=== PATIENT | male | born 1965 | race Caucasian/White ===

== ENCOUNTER → 2016-08-04 | Outpatient (CLI) | payer OTHER ==
[~2016-08-04] MED LIST: AMARYL4 MG PO; ASPI-COR81 M1 PO; GLUCOPHAGE1000 MG PO; LANTUS100 U/ML SC; LIPITOR40 MG PO; LOFIBRA134 MG PO; PERCOCET 325 MG1 TA2 PO; PRILOSEC20 MG PO; VICTOZA 3-PAK6 MG/ML SC; VOLTAREN11 TP; ZESTRIL5 MG PO; ZOFRAN4 MG PO
--- NOTE | ~2016-08-04 | O ---
[place], [place] OPERATIVE NOTE NAME: [facility] #: [id number] UNIT #: [id number] ROOM: DOCTOR: KIRT MUNROE DO BIRTHDATE: [birth year] DOS: 08/08/2016 PREOPERATIVE DIAGNOSIS: Left knee medial meniscus tear. POSTOPERATIVE DIAGNOSIS: Left knee medial meniscus tear. OPERATIVE PROCEDURE: Arthroscopy of the left knee with debridement of the medial meniscus tear. SURGEON: Kirt Munroe DO MAPPER: Issac. ANESTHESIA: [place], BINGO CALLER INDICATIONS: The patient is a 51-year-old male with a history of left knee pain and swelling for several months. No specific injury to the left knee. Physical exam and MRI findings indicated a medial meniscus tear. The risks and benefits of the procedure were explained to the patient preoperatively. Preoperative labs and x-rays were obtained. DESCRIPTION OF PROCEDURE: The left knee was marked in the holding room. The patient was brought to the operative suite. A timeout was performed. General anesthetic with LMA intubation was performed. The patient was placed supine on the operative table. The left knee was prepped and draped in the usual orthopedic manner and placed in a leg murillo. The area about the medial and lateral parapatellar portal was injected with Marcaine 0.5% with epinephrine. Lateral portal was created using a #11 blade followed by a blunt trocar and cannula. The trocar was removed, the cannula remained. The inflow and the outflow were established through the cannula. The arthroscopy camera was placed through the cannula as well. The medial portal was created after the area had been marked with a spinal needle followed by #11 blade and a blunt trocar. The knee was evaluated in systematic fashion. The medial portal was noted to have a complex posterior medial meniscus tear. This was debrided using handheld instrumentation, a full radius resector, and an Arthrocare wand. The articular surface was essentially intact to probing and visualization. The notch was identified and evaluated. The anterior cruciate ligament was noted to be intact to probing and an anterior drawer test. Lateral compartment was identified and evaluated. The articular surface was essentially intact as was the meniscus. The patellofemoral joint was identified and evaluated. This was noted to be intact to probing and direct visualization. The instrumentation was switched using the arthroscopy camera medially and [place], [place] OPERATIVE NOTE NAME: ANGI LOWERY SR UNIT #: [id number] ROOM: DOCTOR: KIRT MUNROE DO BIRTHDATE: [birth year] instrumentation laterally. All compartments were again identified and evaluated. Further debridement was performed along the posterior medial meniscus. When no further repairable or debridable pathology was present, the knee was copiously irrigated with remainder of lactated Ringer with epinephrine. The instrumentation was removed. The portals were expressed of any excess fluid. The portals were closed with 4-0 Prolene. Xeroform, 4 x 4s, cast padding, and ABDs were applied followed by an Dylan bandage. The anesthetic was reversed. The patient was extubated and taken to the recovery room in satisfactory condition. Sponge and needle count correct. ESTIMATED BLOOD LOSS: 5 mL. SPECIMENS: None. DRAINS: None. COMPLICATIONS: None. FINDINGS: Complex medial meniscus tear. KIRT MUNROE DO CM:OPRECORD:OPERATIVE NOTE [id number] KIRT MUNROE DO 08/17/16 0617 MARAH BLACKMAN.TM
[2016-08-04 14:36] LABS: BILIRUBIN NEGATIVE (NEGATIVE); BLOOD TRACE-LYSED (NEGATIVE); CLARITY SL CLOUDY (CLEAR); COLOR YELLOW (YELLOW); GLUCOSE NEGATIVE (NEGATIVE); KETONE NEGATIVE (NEGATIVE); LEUKO ESTERASE NEGATIVE (NEGATIVE); NITRITE NEGATIVE (NEGATIVE); PROTEIN NEGATIVE (NEGATIVE); UROBILINOGEN 0.2 E.U./dl (0.2-1.0)
[2016-08-04 15:03] LABS: BUN 8 mg/dl (7-24); CARBON DIOXIDE 27 mmol/L (21-32); CHLORIDE 103 mmol/L (98-107); EST GLOM FILT AFRICAN AMERICAN > 60 ml/min; GLUCOSE 86 mg/dL (65-99); POTASSIUM 4.1 mmol/L (3.5-5.1); SODIUM 141 mmol/L (136-145)
[2016-08-04 15:07] LABS: RBC 0-2 rbc/hpf (0-2); WBC 0-2 wbc/hpf (0-5)
[2016-08-04 15:22] LABS: HEMOGLOBIN A1c 8.2 % (4.8-5.6)
[2016-08-04 15:30] LABS: BASO # 0.1 10*3/uL (0.0-0.1); BASO % 1.2 % (0.0-1.0); EOS # 0.3 10*3/uL (0.0-0.4); EOS % 2.9 % (1.0-4.0); HEMATOCRIT 40.8 % (42.0-52.0); HEMOGLOBIN 12.3 g/dl (14.0-18.0); LYMPH # 1.6 10*3/uL (1.3-4.4); LYMPH % 18.8 % (27.0-41.0); MEAN CELL VOLUME 86.4 fl (80.0-94.0); MEAN CORPUSCULAR HGB 26.1 pg (27.0-31.0); MEAN CORPUSCULAR HGB CONC 30.1 g/dl (33.0-37.0); MEAN PLATELET VOLUME 9.5 fl (9.6-12.3); MONO # 0.6 10*3/uL (0.1-1.0); MONO % 7.2 % (3.0-9.0); NEUT # 5.9 10*3/uL (2.3-7.9); NEUT % 69.4 % (47.0-73.0); PLATELET COUNT AUTOMATED 285 10*3/uL (130-400); RED BLOOD COUNT 4.72 10*6/uL (4.50-5.90); WHITE BLOOD COUNT 8.6 10*3/uL (4.8-10.8)
== END | disposition home or self-care (01) ==
LOC: LAB 12:38
PROVIDERS: Orthopaedic Surgery
DX: Z01.818 Encounter for other preprocedural examination (principal); S83.242A Other tear of medial meniscus, current injury, left knee, initial encounter; E11.9 Type 2 diabetes mellitus without complications; I10 Essential (primary) hypertension

== ENCOUNTER → 2019-06-28 | Outpatient (CLI) | payer OTHER | END | disposition home or self-care (01) | LOC: RESCLI 00:42 | DX: Z11.59 Encounter for screening for other viral diseases (principal); E11.9 Type 2 diabetes mellitus without complications; I10 Essential (primary) hypertension; E78.5 Hyperlipidemia, unspecified; Q60.0 Renal agenesis, unilateral; K21.9 Gastro-esophageal reflux disease without esophagitis; M21.70 Unequal limb length (acquired), unspecified site; E66.9 Obesity, unspecified; Z79.899 Other long term (current) drug therapy ==

== ENCOUNTER → 2019-12-18 | Outpatient (CLI) | payer OTHER | END | disposition home or self-care (01) | LOC: US 10-26 10:30 | DX: Q60.0 Renal agenesis, unilateral (principal) ==

== ENCOUNTER → 2020-01-24 | Outpatient (CLI) | payer OTHER | END | disposition home or self-care (01) | LOC: RESCLI 00:13 | DX: Z12.5 Encounter for screening for malignant neoplasm of prostate (principal); I10 Essential (primary) hypertension; E78.5 Hyperlipidemia, unspecified; K21.9 Gastro-esophageal reflux disease without esophagitis; E11.9 Type 2 diabetes mellitus without complications; E55.9 Vitamin D deficiency, unspecified; Z12.2 Encounter for screening for malignant neoplasm of respiratory organs; Z11.59 Encounter for screening for other viral diseases; Z98.890 Other specified postprocedural states; Z87.891 Personal history of nicotine dependence; Z79.899 Other long term (current) drug therapy ==

== ENCOUNTER → 2020-04-09 | Outpatient (CLI) | payer OTHER | END | disposition home or self-care (01) | LOC: LAB 14:01 | PROVIDERS: ATTEND Internal Medicine | DX: Z12.5 Encounter for screening for malignant neoplasm of prostate (principal); Z11.59 Encounter for screening for other viral diseases ==

== ENCOUNTER → 2020-04-10 | Outpatient (CLI) | payer OTHER | END | disposition home or self-care (01) | LOC: RESCLI 00:43 | PROVIDERS: ATTEND Student in an Organized Health Care Education/Training Program | DX: Z23 Encounter for immunization (principal); K21.9 Gastro-esophageal reflux disease without esophagitis; I10 Essential (primary) hypertension; E78.5 Hyperlipidemia, unspecified; E55.9 Vitamin D deficiency, unspecified; Z79.4 Long term (current) use of insulin; Z79.899 Other long term (current) drug therapy ==

== ENCOUNTER → 2020-06-19 | Outpatient (CLI) | payer OTHER | END | disposition home or self-care (01) | LOC: RESCLI 01:14 → LAB 01:14 → RESCLI 07:59 | PROVIDERS: ATTEND Student in an Organized Health Care Education/Training Program | DX: K21.9 Gastro-esophageal reflux disease without esophagitis (principal); I10 Essential (primary) hypertension; E78.5 Hyperlipidemia, unspecified; E55.9 Vitamin D deficiency, unspecified; E11.9 Type 2 diabetes mellitus without complications; Z79.899 Other long term (current) drug therapy; Z79.84 Long term (current) use of oral hypoglycemic drugs; Z98.890 Other specified postprocedural states; Z87.891 Personal history of nicotine dependence; Z23 Encounter for immunization ==

== ENCOUNTER → 2020-08-26 | Outpatient (CLI) | payer OTHER | END | disposition home or self-care (01) | LOC: RESCLI 00:34 | PROVIDERS: ATTEND Internal Medicine Nephrology | DX: K21.9 Gastro-esophageal reflux disease without esophagitis (principal); E78.5 Hyperlipidemia, unspecified; E55.9 Vitamin D deficiency, unspecified; E11.9 Type 2 diabetes mellitus without complications; I10 Essential (primary) hypertension; Z79.02 Long term (current) use of antithrombotics/antiplatelets; Z79.84 Long term (current) use of oral hypoglycemic drugs; Z79.899 Other long term (current) drug therapy ==

== ENCOUNTER → 2021-11-11 | Outpatient (CLI) | payer OTHER ==
[2021-11-11 10:08] LABS: BASO # 0.1 10*3/uL (0.0-0.1); BASO % 1.4 % (0.0-1.0); EOS # 0.3 10*3/uL (0.0-0.4); EOS % 3.5 % (1.0-4.0); HEMATOCRIT 36.8 % (42.0-52.0); LYMPH # 1.9 10*3/uL (1.3-4.4); LYMPH % 26.7 % (27.0-41.0); MEAN CELL VOLUME 95.1 fl (80.0-94.0); MEAN CORPUSCULAR HGB 30.2 pg (27.0-31.0); MEAN CORPUSCULAR HGB CONC 31.8 g/dl (33.0-37.0); MEAN PLATELET VOLUME 8.8 fl (9.6-12.3); MONO # 0.6 10*3/uL (0.1-1.0); MONO % 8.4 % (3.0-9.0); NEUT # 4.3 10*3/uL (2.3-7.9); NEUT % 59.4 % (47.0-73.0); PLATELET COUNT AUTOMATED 259 10*3/uL (130-400); RED BLOOD COUNT 3.87 10*6/uL (4.50-5.90); RED CELL DISTRI WIDTH 14.2 % (0-14.5); WHITE BLOOD COUNT 7.2 10*3/uL (4.8-10.8)
[2021-11-11 10:39] LABS: ALKALINE PHOSPHATASE 133 U/L (45-117); BUN 8 mg/dl (7-24); CHLORIDE 104 mmol/L (98-107); CREATININE 0.91 mg/dL (0.70-1.30); POTASSIUM 4.2 mmol/L (3.5-5.1); SGOT/AST 38 IU/L (3-35); SGPT/ALT 34 U/L (12-78); SODIUM 137 mmol/L (136-145); TOTAL PROTEIN 7.8 gm/dL (6.4-8.2)
== END | disposition home or self-care (01) ==
LOC: RESCLI 00:38
PROVIDERS: Internal Medicine; ATTEND Internal Medicine
DX: E11.9 Type 2 diabetes mellitus without complications (principal); I10 Essential (primary) hypertension; K21.9 Gastro-esophageal reflux disease without esophagitis; E78.5 Hyperlipidemia, unspecified; M21.70 Unequal limb length (acquired), unspecified site; D53.9 Nutritional anemia, unspecified; Z79.84 Long term (current) use of oral hypoglycemic drugs; Z79.899 Other long term (current) drug therapy; Z96.652 Presence of left artificial knee joint; Z98.890 Other specified postprocedural states

== ENCOUNTER → 2023-12-28 | Outpatient (CLI) | payer OTHER | LOC: US 12-14 08:30 | PROVIDERS: ATTEND Internal Medicine | DX: R74.01 Elevation of levels of liver transaminase levels (principal) ==

== ENCOUNTER → 2025-06-25 | Outpatient (CLI) | payer OTHER ==
[~2025-06-25] MED LIST changes: -ASPI-COR81 M1 PO; +ASPIRIN ADULT L81 M1 PO; +FENOFIBRATE145 M1 PO; +GABAPENTIN800 MG PO; +JARDIANCE25 MG PO; -LANTUS100 U/ML SC; +LANTUS100 UNIT/1 SC; +OMEPRAZOLE MAGN20 MG PO; +TRAMADOL HCL50 MG PO; +VICTOZA 2-0.6 MG/0.1 SQ; +VITAMIN D3125 MC2 PO; +ZESTRIL10 MG PO
== END | disposition home or self-care (01) ==
LOC: MRI 06-15 09:00
PROVIDERS: ATTEND Internal Medicine
DX: S49.91XD Unspecified injury of right shoulder and upper arm, subsequent encounter (principal); M19.011 Primary osteoarthritis, right shoulder; M25.411 Effusion, right shoulder; M75.121 Complete rotator cuff tear or rupture of right shoulder, not specified as traumatic; M75.51 Bursitis of right shoulder; X58.XXXD Exposure to other specified factors, subsequent encounter